=== PATIENT | male | born 1995 | race African-American/Black ===

== ENCOUNTER 2023-05-20 17:08 | Emergency (ER) | payer OTHER, SELFPAY ==
[2023-05-20 17:23] VITALS: BP 165/98; PULSE 126; RESP 19; TEMP 36.6; O2SAT 97
--- NOTE | 2023-05-20 17:33 | ED.GENADULT ---
HPI - General Adult General Chief complaint: Unspecified Stated complaint: fit for confinement Time Seen by Provider: 05/20/23 17:32 Source: patient and police Mode of arrival: ambulatory History of Present Illness HPI narrative: Patient is a 28-year-old male with no past medical history who was brought in initially in police custody. Patient has no complaints. He denies any chest pain, abdominal pain, extremity pain, headache, shortness of breath. Please report that he was arrested and taken to the police station which time he stated that he swallowed fentanyl and Xanax around the time of arrest. Police confirm that he had fentanyl tablets on him at the time but denies any evidence of benzodiazepines and he was not witnessed to take anything under their supervision. Patient is somnolent but arouses to verbal stimuli and able to answer basic questions. He denies any underlying condition such as asthma, hypertension, or diabetes. Denies taking any medications regularly. Related Data Allergies Allergy/AdvReac Type Severity Reaction Status Date / Time No Known Allergies Allergy Verified 05/20/23 17:26 [facility] Past Medical History Medical History (Updated 05/20/23 @ 22:47 by Shadia Goodman MD) No significant past medical history Exam Narrative: GENERAL: Well-appearing, well-nourished, and in no acute distress. HEAD: Normocephalic, atraumatic. EYES: Non injected, non icteric; pupils initlally 2mm bilaterally ENT: Nares clear, no rhinorrhea or epistaxis. NECK: Supple. CHEST: Clear to auscultation Bilaterally without wheezes, crackles. No respiratory distress. HEART: Tachycardic rate and rhythm. . ABDOMEN: Soft, nondistended. EXTREMITIES: Normal range of motion. No edema. SKIN: Warm, dry, no rash. NEURO: No focal deficits. Initially somnolent but arouses to voice and answers basic health questions. PSYCH: Normal mood and affect. Course Vital Signs Vital signs: Vital Signs Temperature 98 F 05/20/23 17:23 Pulse Rate 126 H 05/20/23 17:23 Respiratory Rate 19 05/20/23 17:23 Blood Pressure 165/98 H 05/20/23 17:23 Pulse Oximetry 97 05/20/23 17:23 Oxygen Delivery Room Air 05/20/23 17:23 Temperature 97.9 F 05/20/23 19:51 Pulse Rate 80 05/20/23 22:27 Respiratory Rate 12 05/20/23 22:27 Blood Pressure 105/65 05/20/23 22:27 Pulse Oximetry 95 05/20/23 22:27 Oxygen Delivery Room Air 05/20/23 21:26 Medical Decision Making MDM Narrative Medical decision making narrative: Patient is a 28-year-old male with no past medical history who was brought in initially in police custody. Patient has no complaints. Police report that he was arrested and taken to the police station which time he stated that he swallowed fentanyl and Xanax around the time of arrest. Police confirm that he had fentanyl tablets on him at the time but denies any evidence of benzodiazepines and he was not witnessed to take anything under their supervision. In the emergency department he is afebrile with vital signs notable for tachycardia and hypertension. Will obtain labs and give IV fluids. On reassessment, Patient does become alert and is talking on the phone with mother. Remains a bit drowsy during this but is otherwise appropriate. However, shortly thereafter, I am notified by RN that patient is difficult to arouse, even to sternal rub. This occurs on multiple occasions but patient remains hemodynamically stable throughout without any vital sign abnormalities. Notably, he is not hypoxic and his respiratory rate remains between 11 and 16 during this time, verified by myself at bedside on multiple occasions. Pupils are pinpoint but no respiratory depression/agonal breathing so will continue to defer Narcan/naloxone. I suspect this may be due to sedative hypnotic response but am also suspicious for cocaine washout. UDS confirms positive for cannabinoids, benzodiazepines, and cocaine as well as a
--- NOTE | 2023-05-20 18:13 | ECG_ITS ---
Measurements Intervals [place] Rate: 77 P: 75 VT: 153 QRS: 60 QRSD: 84 T: 63 QT: 357 QTc: 404 Interpretive Statements SINUS RHYTHM BASELINE ARTIFACT- II, III NORMAL ECG NO PREVIOUS ECG AVAILABLE FOR COMPARISON Electronically Signed On 05-21-2023 7:27:17 UNIT AIDE TECH by Lucas Tello D.O.
--- NOTE | 2023-05-20 18:25 | PC.NURSE ---
1825-PER DIXON REYNOLDS OF [facility], PATIENT IS NO LONGER IN CUSTODY. PER [place] REYNOLDS, IF PATIENT WISHES TO LEAVE, HE IS FREE TO GO. PER DIXON REYNOLDS, NO NEED TO CONTACT POLICE IF HE WALKS OUT OF HOSPITAL OR DECLINES ANY TREATMENT/TESTING.
[2023-05-20 19:10] LABS: Basophils Percent Auto 0.5 % (0.2-1.2); Eosinophils Absolute Auto 0.1 K/mm3 (0-0.3); Eosinophils Percent Auto 1.5 % (0-4.4); Hematocrit 42.5 % (42.0-52.0); Hemoglobin 12.8 g/dL (14.0-18.0); Immature Granulocyte Absolute 0.01 K/mm3 (0.00-0.031); Immature Granulocyte Percent A 0.1 % (0-0.5); Lymphocytes Absolute Auto 2.97 K/mm3 (0.9-3.2); Lymphocytes Percent Auto 39.6 % (18.3-44.2); Mean Corpuscular HGB Conc 30.1 g/dl (32-36); Mean Corpuscular Hemoglobin 23.1 pg (26-34); Mean Corpuscular Volume 76.6 fl (80-100); Mean Platelet Volume 9.3 fl (7.4-10.4); Monocytes Absolute Auto 0.9 K/mm3 (0.1-0.6); Monocytes Percent Auto 11.6 % (2.6-8.5); Neutrophils Absolute Auto 3.5 K/mm3 (1.3-6.7); Neutrophils Percent Auto 46.7 % (45.5-73.1); Platelet Count Result 340 k/mm3 (150-375); Red Blood Count 5.55 M/mm3 (4.6-6.20); Red Cell Distribution Width 15.9 % (11.5-14.5); White Blood Count 7.5 K/mm3 (4.5-10.0)
[2023-05-20 19:20] LABS: Alanine Aminotransferase 15 U/L (6-50); Albumin Level 4.4 g/dL (3.5-5.1); Alkaline Phosphatase 72 U/L (38-126); Anion Gap 5 mmol/L (8-16); Aspartate Amino Transferase 26 U/L (17-59); Bilirubin,Total 0.7 mg/dL (0.2-1.3); Blood Urea Nitrogen 10 mg/dL (9-20); Calcium 9.6 mg/dL (8.4-10.2); Carbon Dioxide 32 mmol/L (22-30); Chloride 101 mmol/L (98-107); Estimated CRCL calculation 141 ml/min; Estimated Glomerular Filt Rate > 60; Glucose 85 mg/dL (65-110); Potassium 4.2 mmol/L (3.4-5.0); Sodium 138 mmol/L (137-145)
[2023-05-20 19:33] LABS: Acetaminophen < 10 ug/mL (10-30); Ethanol < 10 mg/dL (<10); Salicylate < 1.0 mg/dL (2-20)
--- NOTE | 2023-05-20 19:34 | PC.NURSE ---
1934-ATTEMPTED TO AWAKEN PATIENT WITH YELLING OF NAME. PATIENT RESPONDED WITH STERNAL RUB. SECURITY AT BEDSIDE PATIENT SEATED ON BED AND, DESPITE MULTIPLE INSTRUCTIONS, PATIENT UNABLE TO FOLLOW INSTRUCTIONS TO VOID IN URINAL. PATIENT SWAYING WHILE SEATED. CLEAR ORAL DROOLING NOTED. PATIENT OPENS EYES ON COMMAND BUT IMMEDIATELY CLOSES THEM. PATIENT PLACED BACK ON STRETCHER WITH ONE SIDE RAIL UP. CHARGE NURSE NOTIFIED. PATIENT WILL BE MOVED TO ROOM 2. PATIENT ADMITS TO ORAL INGESTION OF [place].
[2023-05-20 19:51] VITALS: BP 116/64; PULSE 72; RESP 20; TEMP 36.6; O2SAT 99
--- NOTE | 2023-05-20 20:00 | PC.NURSE ---
assumed care of pt from ERNESTINA Myers at this time. Pt moved from RM 21 to RM 9.
--- NOTE | 2023-05-20 20:00 | PC.NURSE ---
1999-PATIENT MOVED TO ED #9.
[2023-05-20] MEDS: SODIUM CHLORIDE 0.9% IV 1,000 ML 999 ML IV CONT (21:08)
--- NOTE | 2023-05-20 21:08 | PC.NURSE ---
This RN entered pt room to obtain urine sample. Pt was incoherent and hard to arouse. Pt responsive to pain only. This RN and Franny RN straight cathed pt and started IV on pt. EDP Dr. Goodman made aware. IV fluids infusing at this time. Pt VS stable.
[2023-05-20 21:11] VITALS: BP 107/71; PULSE 84; RESP 15; O2SAT 97
--- NOTE | 2023-05-20 21:24 | PC.NURSE ---
EDP Dr. Goodman at bedside and stated pt stable at this time. To notify EDP if pt starts agonally breathing and she will reassess.
[2023-05-20 21:26] VITALS: O2SAT 96
[2023-05-20 21:28] LABS: Barbiturate Screen Urine Negative (Negative); Benzodiazepines Screen Urine Positive (Negative)
[2023-05-20 21:29] LABS: Cannabinoid Screen Urine Positive (Negative); Cocaine Screen Urine Positive (Negative); Methadone Screen Urine Negative (Negative); Opiate Screen Urine Negative (Negative); Phencyclidine Screen Urine Negative (Negative)
--- NOTE | 2023-05-20 22:26 | PC.NURSE ---
Pt resting in bed at this time. Still only responsive to pain. IV fluids disconnected from pt. VS stable at this time.
[2023-05-20 22:27] VITALS: BP 105/65; PULSE 80; RESP 12; O2SAT 95
[2023-05-20 22:42] LABS: Amphetamine Screen Urine Positive (Negative)
--- NOTE | 2023-05-20 23:38 | PC.NURSE ---
This RN spoke with Elisabeth pt mother. Mother requesting update on pt as she will be his ride. Mother updated that pt is still not alert to verbal. Mother to call back in a few hours for another update.
[2023-05-21 01:50] VITALS: BP 110/78; PULSE 90; RESP 12; O2SAT 100
--- NOTE | 2023-05-21 03:29 | PC.NURSE ---
Pt arousable to voice at this time. Pt instructed by this RN to coordinate ride and given his phones to do so. Pt to call out after coordinating ride.
[2023-05-21 03:52] VITALS: BP 109/82; PULSE 89; RESP 18; O2SAT 96
== END 2023-05-21 03:54 | disposition home or self-care (01) ==
PROVIDERS: Emergency Provider Student in an Organized Health Care Education/Training Program
DX: T42.4X1A Poisoning by benzodiazepines, accidental (unintentional), initial encounter (principal); F14.10 Cocaine abuse, uncomplicated; F12.10 Cannabis abuse, uncomplicated; F15.10 Other stimulant abuse, uncomplicated; D50.9 Iron deficiency anemia, unspecified
CPT/HCPCS: 36415; 80053; 80307; 85025; 93005; 96360; 99284; J7030